=== PATIENT | male | born 1970 | race American Indian/Alaskan Native ===

== ENCOUNTER 2018-07-09 08:10 | Day surgery (SDC) | payer BC ==
[2018-07-09] MEDS ORDERED: NACL 0.9% 1000 ML 1,000 ML ONE ×2 (08:41→09:20)
[2018-07-09] MEDS ORDERED: DIPRIVAN 10 MG/ML IV ONE ×3 (08:55→08:56)
[2018-07-09] MEDS ORDERED: XYLOCAINE MPF 2% ONE (09:00)
--- NOTE | 2018-07-09 09:30 | Short Stay Summary ---
Short Stay Documentation Date of service: 07/09/18 - History H&P: obtained from office - Allergies and Medications Current Medications: Allergies No Known Allergies Allergy (Unverified 07/09/18 08:10) Home Medications Medication Instructions Recorded Confirmed Last Taken Type ALBUTEROL Inhaler [Proair] 2 puff IH QID PRN 07/09/18 07/09/18 07/02/18 History Aspirin EC [Aspirin Enteric Coated 81 mg PO QDAY 07/09/18 07/09/18 07/02/18 History TAB] - Brief post op/procedure progress note Date of procedure: 07/09/18 Findings: see dictated report Estimated blood loss: none Pathology: none Condition: stable - Disposition Condition at discharge: Good Disposition: DC-01 TO HOME OR SELFCARE - Discharge Diagnoses (1) Colon cancer screening Status: Acute Short Stay Discharge Plan Activity: other (no driving for 24 hours) Weight Bearing Status: Full Weight Bearing Diet: regular
--- NOTE | 2018-07-09 09:31 | Operative Report ---
Operative Report Operative Report: Date of procedure: 07/09/2018 Preprocedure diagnosis: Colon cancer screening, average risk. No prior studies. Post procedure diagnosis: Normal study Procedure: Colonoscopy to the cecum Endoscopist: Dr. So Anesthesia: Monitored anesthesia care per anesthesia department Estimated blood loss: 0 Medications: Monitored anesthesia care. See separate report by anesthesia for details. After careful discussion of the nature and purpose of the procedure as well as details of the technique risks benefits and alternatives the patient gave consent. Please see recent history and physical from the office. The patient was placed in the left lateral decubitus position and medicated per anesthesia. A rectal exam was performed sphincter tone was normal there were no masses palpable. The [employer] 570 scope was passed transanally and advanced under continuous direct vision without difficulty to the cecum. The colon was well prepared. The cecum was normal. The ascending colon was normal and on forward and retroflexed views. The transverse colon, descending colon, and sigmoid colon were normal. The rectum was normal on forward and retroflexed views. The procedure was well-tolerated overall and the patient was observed in recovery. Conclusions: Normal colonoscopy to the cecum. Plan: Repeat colonoscopy in 10 years, sooner if clinically indicated. Signed electronically: Gold So M.D.
[2018-07-09] MEDS ORDERED: NACL 0.9% 1000 ML 1,000 ML IV SCH (10:00)
[2018-07-09 10:01] VITALS: BP 108/62
== END 2018-07-09 08:11 | disposition home or self-care (01) ==
LOC: EDSEX 08:10 → GIO 08:10
PROVIDERS: ATTEND Internal Medicine Gastroenterology
DX: Z12.11 Encounter for screening for malignant neoplasm of colon (principal); G43.909 Migraine, unspecified, not intractable, without status migrainosus; I25.10 Atherosclerotic heart disease of native coronary artery without angina pectoris; J45.909 Unspecified asthma, uncomplicated; Z79.82 Long term (current) use of aspirin; Z79.899 Other long term (current) drug therapy; Z87.891 Personal history of nicotine dependence; Z98.890 Other specified postprocedural states
CPT/HCPCS: 45378; J2704; J7030

== ENCOUNTER 2019-04-18 11:14 | Outpatient (CLI) | payer BC ==
--- NOTE | 2019-04-18 13:21 | Magnetic Resonance Report ---
MR CERVICAL SPINE WITHOUT CONTRAST HISTORY: Neck pain, pain and unspecified shoulder. TECHNIQUE: Axial T2 and T2 gradient. Sagittal T1, T2 and STIR. COMPARISON: None. FINDINGS: The cervical spinal cord is normal size and signal intensity throughout. No abnormal intramedullary signal is detected. Normal height and alignment of the cervical vertebral bodies. Normal bone marrow signal. The intervertebral disc spaces are within normal limits. The facet joints are in appropriate relationship. No significant joint pathology or hypertrophic changes. The paraspinal soft tissues are within normal limits. C2-3: Within normal limits. C3-4: Within normal limits. C4-5: Within normal limits. C5-6: Within normal limits. C6-7: Within normal limits. C7-T1: Within normal limits. IMPRESSION: MR cervical spine within normal limits.
== END 2019-04-18 11:15 | disposition home or self-care (01) ==
LOC: MRI 11:14
PROVIDERS: ATTEND Orthopaedic Surgery
DX: M54.2 Cervicalgia (principal); M25.519 Pain in unspecified shoulder; J45.909 Unspecified asthma, uncomplicated; Z87.891 Personal history of nicotine dependence
CPT/HCPCS: 72141